=== PATIENT | male | born 1980 | race Caucasian/White ===

== ENCOUNTER 2018-11-14 17:10 | Emergency (ER) | payer OTHER ==
[~2018-11-14] VITALS: Ht 185.4 cm; Wt 136.4 kg
[2018-11-14 17:16] VITALS: TEMP 96
[2018-11-14] MEDS ORDERED: ASPIRIN 81M81 MG/TA2 PO (17:30)
[2018-11-14] MEDS ORDERED: LOPRESSOR 225 MG/TAB PO (17:30)
[2018-11-14 18:00] VITALS: BP 115/84; PULSE 89
== END 2018-11-14 18:00 | disposition home or self-care (01) ==
LOC: COL.ER 17:10
DX: R00.2 Palpitations (principal); I10 Essential (primary) hypertension; Z79.82 Long term (current) use of aspirin